=== PATIENT | male | born 1990 | race Caucasian/White ===

== ENCOUNTER 2016-08-04 02:15 | Emergency (ER) | payer SELFPAY ==
--- NOTE | 2016-08-04 02:20 | NUR ---
Patient to ER bed 8 to gown for evaluation. Side rails up.
--- NOTE | 2016-08-04 02:25 | NUR ---
PT IS 25/M C/O BACK PAIN SECONDARY TO MECHANICAL FALL DUE TO LACERATION WITH PAIN SCALE 4/10.
--- NOTE | 2016-08-04 02:26 | NUR ---
ER at bedside examining patient.
[2016-08-04] MEDS ORDERED: LIDOCAINE/EPI 1% 1:100000 20 ML VIAL INJ ONE (02:53)
[2016-08-04] MEDS ORDERED: DIPH-TET-PERTUS Vaccine 0.5 ML VIAL (ADACEL) I.M. ONE (02:54)
[2016-08-04] MEDS ORDERED: BACITRACIN 1 GM OINT TP ONE (03:45)
[2016-08-04 03:50] VITALS: BP 128/75; PULSE 86; RESP 18; TEMP 99.2; O2SAT 97
--- NOTE | 2016-08-04 03:50 | NUR ---
Patient given written and verbal discharge instructions and verbalizes understanding. ER MD discussed with patient the results and treatment provided. Patient in stable condition. ID arm band removed. Rx of MOTRIN 800 MG AND BACTRIM DS 800MG-160MG given. Patient educated on pain management and to follow up with PMD. Pain Scale 0/10. Opportunity for questions provided and answered.
== END 2016-08-04 03:50 | disposition home or self-care (01) ==
LOC: SED 02:15
DX: S31.010A Laceration without foreign body of lower back and pelvis without penetration into retroperitoneum, initial encounter (principal); W19.XXXA Unspecified fall, initial encounter; Y93.89 Activity, other specified; Y99.8 Other external cause status; Y92.89 Other specified places as the place of occurrence of the external cause
CPT/HCPCS: 72100-TC; 90715; 99284

== ENCOUNTER 2016-08-15 10:05 | Emergency (ER) | payer SELFPAY ==
[~2016-08-15] VITALS: Ht 195.6 cm; Wt 90.7 kg
[2016-08-15 10:14] VITALS: BP 115/68; PULSE 78; RESP 16; TEMP 98.2; O2SAT 99
--- NOTE | 2016-08-15 10:16 | NUR ---
AMBULATED TO ED
--- NOTE | 2016-08-15 10:20 | NUR ---
ER at bedside examining patient.
--- NOTE | 2016-08-15 10:38 | NUR ---
5 sutures removed from lower back. Skin well approximated. No s/sx of infection. Pt tolerated well.
--- NOTE | 2016-08-15 10:54 | NUR ---
Patient given written and verbal discharge instructions and verbalizes understanding. ER MD discussed with patient the results and treatment provided. Patient in stable condition. ID arm band removed. Rx of NO given. Patient educated on pain management and to follow up with PMD. Pain Scale [0]. Opportunity for questions provided and answered.
[2016-08-15 10:55] VITALS: BP 110/70; PULSE 61; RESP 17; TEMP 98; O2SAT 99
== END 2016-08-15 10:55 | disposition home or self-care (01) ==
LOC: SED 10:05
DX: S31.010D Laceration without foreign body of lower back and pelvis without penetration into retroperitoneum, subsequent encounter (principal); W45.8XXD Other foreign body or object entering through skin, subsequent encounter; Y93.89 Activity, other specified; Y99.8 Other external cause status; Y92.89 Other specified places as the place of occurrence of the external cause
CPT/HCPCS: 99281